=== PATIENT | male | born 1950 | race Caucasian/White ===

== ENCOUNTER 2019-08-28 07:17 | Emergency (ER) | payer OTHER, MEDICAID ==
[~2019-08-28] VITALS: Ht 185.4 cm; Wt 158.8 kg
[2019-08-28 07:17] VITALS: Ht 185.4 cm; Wt 158.8 kg
[2019-08-28 11:58] VITALS: BP 000/000
== END 2019-08-28 11:58 | disposition expired ==
LOC: ED 07:17 → EDBD 07:17 → ED 11:58
DX: I46.9 Cardiac arrest, cause unspecified (principal)